=== PATIENT | female | born 1980 | race Caucasian/White ===

== ENCOUNTER → 2021-11-07 | Outpatient (CLI) | payer BC ==
[2016-02-04 17:20] VITALS: BP 143/81
== END ==
LOC: LAB 11:53
PROVIDERS: ATTEND Obstetrics & Gynecology
DX: N93.9 Abnormal uterine and vaginal bleeding, unspecified (principal)
CPT/HCPCS: 36415; 84702

== ENCOUNTER → 2021-11-12 | Outpatient (CLI) | payer OTHER ==
[2016-02-04 17:20] VITALS: BP 143/81
--- NOTE | 2021-11-12 12:41 | RAD ---
EXAM: Obstetrics sonogram. HISTORY: Vaginal bleeding with tissue. TECHNIQUE: Sonographic imaging of the pelvis was performed. COMPARISON: 11/05/2021. FINDINGS: The uterus measures 9.4 x 6.4 x 6.2 cm. There is no intrauterine gestational sac. The ovari es are normal in size and demonstrate normal blood flow. There is a 1.5 cm dominant right ovarian fol licle/follicular cyst. The endometrial stripe measures 7.4 mm. There is a small amount of pelvic free fluid. IMPRESSION: 1. No intrauterine gestational sac. The reported beta-hCG level 6 days ago was 3475. The absence of a gestational sac at that level and history of vaginal bleeding with tissue favors early miscarriage. Correlation with serial beta-hCG levels to confirm decline and exclude an ectopic gestation or retain ed products is recommended. 2. Decrease in a 1.5 cm dominant right ovarian follicle/follicular cyst. Electronically signed by: Isaura Mcknight MD (11/12/2021 12:38 PM) [id number]
== END ==
LOC: US 10:59
PROVIDERS: ATTEND Obstetrics & Gynecology
DX: N83.01 Follicular cyst of right ovary (principal); N93.9 Abnormal uterine and vaginal bleeding, unspecified
CPT/HCPCS: 76801; 76817

== ENCOUNTER → 2021-11-21 | Outpatient (CLI) | payer BC ==
[2016-02-04 17:20] VITALS: BP 143/81
== END ==
LOC: LAB 14:17
PROVIDERS: ATTEND Obstetrics & Gynecology
DX: N93.9 Abnormal uterine and vaginal bleeding, unspecified (principal)
CPT/HCPCS: 36415; 84702